=== PATIENT | female | born 2000 | race African-American/Black ===

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

== ENCOUNTER 2024-08-30 16:52 | Emergency (ER) | payer MEDICAID ==
[~2024-08-30] VITALS: Ht 167.6 cm; Wt 110.2 kg
[2024-08-30 17:09] VITALS: O2SAT 99
[2024-08-30 18:57] VITALS: BP 138/84; PULSE 90; RESP 16; TEMP 36.7; O2SAT 99
== END 2024-08-30 18:58 ==
LOC: ER 16:52
DX: R51.9 Headache, unspecified (principal); F41.9 Anxiety disorder, unspecified; Z98.890 Other specified postprocedural states
CPT/HCPCS: 99281